=== PATIENT | male | born 1950 | race Caucasian/White ===

== ENCOUNTER 2022-04-01 07:22 | Inpatient (IN) | payer MEDICARE, MEDICAID ==
[~2022-04-01] VITALS: Ht 177.8 cm; Wt 59.9 kg
[2022-04-01] MEDS ORDERED: IOHEXOL 350 MG/ML 100 ML VIAL ONE (07:38)
[2022-04-01] MEDS ORDERED: SODIUM CHLORIDE 0.9% 100 ML ONE (07:38)
[2022-04-01] MEDS ORDERED: ONDANSETRON HCL 4 MG/2 ML VIAL IVP ONE (07:45)
[2022-04-01] MEDS ORDERED: SODIUM CHLORIDE 0.9% 1,000 ML IV ONE (07:45)
[2022-04-01 08:10] LABS: BASOPHILS % (AUTO) 2.1 % (0.0-2.0); EOSINOPHILS % (AUTO) 1.1 % (1.0-6.0); HEMATOCRIT 39.4 % (41-53); HEMOGLOBIN 12.8 g/dL (13.5-17.5); LYMPHOCYTES % (AUTO) 12.9 % (22.0-44.0); MEAN CORPUSCULAR HEMOGLOBIN 31.2 pg (26.0-34.0); MEAN CORPUSCULAR HGB CONC 32.5 G/dL (31.0-37.0); MEAN CORPUSCULAR VOLUME 96 fL (80-100); MONOCYTES # (AUTO) 0.6 K/uL (0.1-1.0); MONOCYTES % (AUTO) 7.1 % (2.0-9.0); NEUTROPHILS % (AUTO) 76.8 % (40.0-70.0); PLATELET COUNT (AUTO) 294 K/uL (150-450); RED BLOOD CELL COUNT(AUTO) 4.11 MIL/uL (4.50-5.90); RED CELL DISTRIBUTION WIDTH 16.1 % (11.5-14.5)
[2022-04-01 08:24] LABS: COVID AG,FIA SOURCE NASOPHARYNGEAL
[2022-04-01 08:25] LABS: D-DIMER 1.98 mg/L FEU (0.00-0.50); INR 1.2 (0.9-1.1)
[2022-04-01 08:29] LABS: ANION GAP 12 mmol/L (8-16); CALCIUM, TOTAL 9.1 mg/dL (8.8-10.5); CARBON DIOXIDE 19 mmol/L (22-29); CHLORIDE 107 mmol/L (98-107); CREATININE 1.14 mg/dL (0.60-1.30); GLOMERULAR FILTR. RATE CALC > 60 mL/min (>60); GLUCOSE,RANDOM 82 mg/dL (70-110); POTASSIUM 4.8 mmol/L (3.5-5.1); SODIUM SERUM 138 mmol/L (136-145); UREA NITROGEN, BLOOD 21 mg/dL (7-18)
[2022-04-01 08:32] LABS: ALANINE AMINOTRANSFERASE 43 U/L (12-78); ALKALINE PHOSPHATASE 102 U/L (46-116); ASPARTATE AMINOTRANSFERASE 32 U/L (15-37); B-TYPE NATRIURETIC PEPTIDE 1020 pg/mL (0-100); BILIRUBIN,TOTAL 1.1 mg/dL (0.1-1.0); CREATINE KINASE, TOTAL ONLY 69 U/L (39-308); LIPASE 54 U/L (73-393); PHOSPHORUS 3.8 mg/dL (2.5-4.9); TOTAL PROTEIN, SERUM 7.8 g/dL (6.4-8.2)
[2022-04-01] MEDS ORDERED: PANT-31 PO (08:46)
[2022-04-01] MEDS ORDERED: ATOR40TA28 PO (08:46)
[2022-04-01] MEDS ORDERED: APIX5TAB PO (08:46)
[2022-04-01] MEDS ORDERED: LOSA-381 PO (08:46)
[2022-04-01 08:56] LABS: INFLUENZA TYPE A NEGATIVE FOR TYPE A (NEGATIVE); INFLUENZA TYPE B NEGATIVE FOR TYPE B (NEGATIVE)
[2022-04-01] MEDS ORDERED: LEVOFLOXACIN 750 MG/D5% WATER 150 ML IV ONE (09:30)
[2022-04-01] MEDS ORDERED: DiphenhydrAMINE HCL 50 MG/ML VIAL IVP ONE (09:30)
[2022-04-01] MEDS ORDERED: METOCLOPRAMIDE HCL 5 MG/ML 2 ML VIAL IVP ONE (09:30)
[2022-04-01 12:16] LABS: APPEARANCE,URINE CLEAR (CLEAR); BILIRUBIN,URINE NEGATIVE (NEGATIVE); GLUCOSE, URINE (UA) NEGATIVE (NEGATIVE); KETONES,URINE NEGATIVE (NEGATIVE); LEUKOCYTE ESTERASE ,URINE NEGATIVE (NEGATIVE); NITRATE,URINE NEGATIVE (NEGATIVE); OCCULT BLOOD,URINE NEGATIVE (NEGATIVE); PH,URINE 5.5 (5.0-8.0); PROTEIN,URINE NEGATIVE (NEGATIVE); SPECIFIC GRAVITIY, URINE 1.027 (1.003-1.030); UROBILINOGEN,URINE <=1.0 mg/dL (<=1.0)
[2022-04-01 12:29] VITALS: BP 143/114
[2022-04-01] MEDS ORDERED: 0.9% SODIUM CHLORIDE 10 ML SYRINGE IVP PRN (12:30)
[2022-04-01] MEDS ORDERED: ONDANSETRON HCL 4 MG/2 ML VIAL IVP PRN (12:30)
[2022-04-01] MEDS ORDERED: ACETAMINOPHEN 325 MG TABLET PO PRN (12:30)
[2022-04-01 15:21] VITALS: BP 135/108
[2022-04-01 20:05] VITALS: BP 114/72
[2022-04-01] MEDS ORDERED: KETOROLAC TROMETHAMINE 10 MG TABLET PO ONE (21:15)
[2022-04-01] MEDS ORDERED: MELATONIN 3 MG TABLET PO PRN (21:15)
[2022-04-01] MEDS ORDERED: MAGNESIUM HYDROXIDE SUSPENSION 30 ML UDCUP PO PRN (22:30)
[2022-04-01] MEDS ORDERED: ZOLPIDEM TARTRATE 5 MG TABLET PO PRN (22:30)
[2022-04-01] MEDS ORDERED: ALBUTEROL SULFATE 2.5 MG/0.5 ML NEB SOLUTION NEB PRN (22:30)
[2022-04-01] MEDS ORDERED: BISACODYL 10 MG RECTAL RECTAL SUPPOSITORY PR PRN (22:30)
[2022-04-01] MEDS ORDERED: MORPHINE SULFATE 2 MG/ML SYRINGE IVP PRN (22:30)
[2022-04-01] MEDS ORDERED: IPRATROPIUM BROMIDE 0.5 MG/2.5 ML NEB SOLUTION NEB PRN (22:30)
[2022-04-01 23:49] VITALS: BP 136/81
[2022-04-02 04:09] VITALS: BP 123/72
[2022-04-02] MEDS: ACETAMINOPHEN 325 MG TABLET PO PRN ×2 (05:27→16:53)
[2022-04-02] MEDS: ONDANSETRON HCL 4 MG/2 ML VIAL IVP PRN (07:03)
[2022-04-02] MEDS: HEPARIN SODIUM,PORCINE 5,000 UNITS/ML VIAL SQ SCH ×4 (08:00→23:19)
[2022-04-02 08:05] VITALS: BP 140/89
[2022-04-02 08:20] LABS: BASOPHILS % (AUTO) 1.1 % (0.0-2.0); EOSINOPHILS % (AUTO) 0.8 % (1.0-6.0); HEMATOCRIT 37.4 % (41-53); HEMOGLOBIN 12.2 g/dL (13.5-17.5); LYMPHOCYTES % (AUTO) 11.5 % (22.0-44.0); MEAN CORPUSCULAR HEMOGLOBIN 31.2 pg (26.0-34.0); MEAN CORPUSCULAR HGB CONC 32.5 G/dL (31.0-37.0); MEAN CORPUSCULAR VOLUME 96 fL (80-100); MONOCYTES # (AUTO) 0.7 K/uL (0.1-1.0); MONOCYTES % (AUTO) 8.4 % (2.0-9.0); NEUTROPHILS # (AUTO) 6.6 K/uL (1.8-7.7); NEUTROPHILS % (AUTO) 78.2 % (40.0-70.0); PLATELET COUNT (AUTO) 258 K/uL (150-450)
[2022-04-02 08:37] LABS: ALBUMIN 3.5 g/dL (3.4-5.0); BILIRUBIN,TOTAL 1.6 mg/dL (0.1-1.0); CALCIUM, TOTAL 8.8 mg/dL (8.8-10.5); CREATININE 1.2 mg/dL (0.60-1.30); POTASSIUM 4.5 mmol/L (3.5-5.1); TOTAL PROTEIN, SERUM 7.1 g/dL (6.4-8.2)
[2022-04-02] MEDS: PANTOPRAZOLE SODIUM 40 MG DR TABLET PO SCH (08:54)
[2022-04-02] MEDS: LOSARTAN POTASSIUM 25 MG TABLET PO SCH (08:58)
[2022-04-02] MEDS: ATORVASTATIN CALCIUM 40 MG TABLET PO SCH (08:58)
[2022-04-02] MEDS ORDERED: PANTOPRAZOLE SODIUM 40 MG DR TABLET PO SCH (09:00)
[2022-04-02 15:38] LABS: SPECIMENTYPE,BODY FLUID PLEURAL
[2022-04-02 16:09] VITALS: BP 137/109
[2022-04-02 16:53] LABS: APPEARANCE,SPUN,BODY FLUID CLEAR (CLEAR); APPEARANCE,UNSPUN,BODY FLUID HAZY (CLEAR); COLOR,BODY FLUID YELLOW (LT YELLOW); TOTAL VOLUME,BODY FLUID 825 mL; WBC, BODY FLUID 4 /cu. mm.
[2022-04-02 16:54] LABS: BASOPHILS,BODY FLUID 0 %; EOSINOPHILS,BF (ANAL) 0 %; LYMPHOCYTES,BODY FLUID 65 %; MONOCYTES,BODY FLUID 9 %; NEUTROPHILS,BODY FLUID 26 %; PH, BODY FLUID 8
[2022-04-02] MEDS ORDERED: METOPROLOL SUCCINATE 50 MG ER TABLET PO ONE (17:30)
[2022-04-02 20:40] VITALS: BP 117/75
[2022-04-02] MEDS: HYDROCODONE/ACETAMINOPHEN 5-325 MG TABLET PO PRN (23:17)
[2022-04-03 00:20] VITALS: BP 122/80
[2022-04-03] MEDS: HYDROCODONE/ACETAMINOPHEN 5-325 MG TABLET PO PRN ×4 (04:34→18:36)
[2022-04-03 05:14] VITALS: BP 124/85
[2022-04-03] MEDS: HEPARIN SODIUM,PORCINE 5,000 UNITS/ML VIAL SQ SCH ×2 (08:00)
[2022-04-03 08:16] VITALS: BP 113/95
[2022-04-03] MEDS: ATORVASTATIN CALCIUM 40 MG TABLET PO SCH (08:57)
[2022-04-03] MEDS: PANTOPRAZOLE SODIUM 40 MG DR TABLET PO SCH (08:57)
[2022-04-03] MEDS: METOPROLOL SUCCINATE 50 MG ER TABLET PO SCH (08:57)
[2022-04-03] MEDS: APIXABAN 5 MG TABLET PO SCH ×2 (08:57→20:15)
[2022-04-03] MEDS: FUROSEMIDE 40 MG/4 ML VIAL IVP SCH (08:58)
[2022-04-03] MEDS: LOSARTAN POTASSIUM 25 MG TABLET PO SCH (09:00)
[2022-04-03 12:16] VITALS: BP 118/80
[2022-04-03] MEDS: ONDANSETRON HCL 4 MG/2 ML VIAL IVP PRN (14:16)
[2022-04-03 15:22] LABS: THYROID STIMULATING HORMONE 3.34 uIU/mL (0.36-3.74); TOTAL PROTEIN, SERUM 7.4 g/dL (6.4-8.2)
[2022-04-03 16:16] VITALS: BP 125/90
[2022-04-03 20:15] VITALS: BP 118/84
[2022-04-04] VITALS (7 sets, daily range): BP systolic 109–125; BP diastolic 64–86
[2022-04-04] MEDS: HYDROCODONE/ACETAMINOPHEN 5-325 MG TABLET PO PRN ×4 (01:29→23:14)
[2022-04-04] MEDS: LOSARTAN POTASSIUM 25 MG TABLET PO SCH (09:00)
[2022-04-04] MEDS: PANTOPRAZOLE SODIUM 40 MG DR TABLET PO SCH (09:00)
[2022-04-04] MEDS: ATORVASTATIN CALCIUM 40 MG TABLET PO SCH (09:00)
[2022-04-04] MEDS: APIXABAN 5 MG TABLET PO SCH ×2 (09:15→20:20)
[2022-04-04] MEDS: METOPROLOL SUCCINATE 50 MG ER TABLET PO SCH (09:15)
[2022-04-04] MEDS: FUROSEMIDE 40 MG/4 ML VIAL IVP SCH (09:16)
[2022-04-04] MEDS: ACETAMINOPHEN 325 MG TABLET PO PRN (11:43)
[2022-04-05 06:22] LABS: BASOPHILS % (AUTO) 1.9 % (0.0-2.0); EOSINOPHILS % (AUTO) 7.6 % (1.0-6.0); HEMATOCRIT 39.4 % (41-53); HEMOGLOBIN 12.8 g/dL (13.5-17.5); LYMPHOCYTES # (AUTO) 1.5 K/uL (1.0-4.8); LYMPHOCYTES % (AUTO) 17.6 % (22.0-44.0); MEAN CORPUSCULAR HEMOGLOBIN 31.1 pg (26.0-34.0); MEAN CORPUSCULAR HGB CONC 32.5 G/dL (31.0-37.0); MEAN CORPUSCULAR VOLUME 96 fL (80-100); MONOCYTES # (AUTO) 0.7 K/uL (0.1-1.0); MONOCYTES % (AUTO) 8.4 % (2.0-9.0); NEUTROPHILS # (AUTO) 5.4 K/uL (1.8-7.7); NEUTROPHILS % (AUTO) 64.5 % (40.0-70.0); PLATELET COUNT (AUTO) 232 K/uL (150-450); RED BLOOD CELL COUNT(AUTO) 4.12 MIL/uL (4.50-5.90); RED CELL DISTRIBUTION WIDTH 15.4 % (11.5-14.5)
[2022-04-05 06:47] LABS: CREATININE 1.29 mg/dL (0.60-1.30); POTASSIUM 4.4 mmol/L (3.5-5.1)
[2022-04-05 08:05] VITALS: BP 123/85
[2022-04-05] MEDS: ATORVASTATIN CALCIUM 40 MG TABLET PO SCH (08:18)
[2022-04-05] MEDS: FUROSEMIDE 40 MG/4 ML VIAL IVP SCH (08:18)
[2022-04-05] MEDS: PANTOPRAZOLE SODIUM 40 MG DR TABLET PO SCH (08:19)
[2022-04-05] MEDS: LOSARTAN POTASSIUM 25 MG TABLET PO SCH (08:19)
[2022-04-05] MEDS: APIXABAN 5 MG TABLET PO SCH (08:19)
[2022-04-05] MEDS: METOPROLOL SUCCINATE 50 MG ER TABLET PO SCH (08:19)
[2022-04-05] MEDS: HYDROCODONE/ACETAMINOPHEN 5-325 MG TABLET PO PRN ×2 (08:19→15:01)
[2022-04-05 12:10] VITALS: BP 119/79
[2022-04-05] MEDS ORDERED: METO-558 PO (12:16)
[2022-04-05] MEDS ORDERED: SPIR-37 PO (12:16)
[2022-04-06] MEDS ORDERED: SPIRONOLACTONE 25 MG TABLET PO SCH (09:00)
== END 2022-04-05 16:55 | disposition home health service (06) | DRG 291 ==
LOC: EMS 07:22 → 5S 11:20
PROVIDERS: ADMIT Hospitalist; ATTEND Hospitalist
PROC: 0W993ZZ Drainage of Right Pleural Cavity, Percutaneous Approach (ICD-10-PCS; principal; 2022-04-02)
DX: I11.0 Hypertensive heart disease with heart failure (principal); E43 Unspecified severe protein-calorie malnutrition; J18.9 Pneumonia, unspecified organism; J96.01 Acute respiratory failure with hypoxia; I50.23 Acute on chronic systolic (congestive) heart failure; I48.20 Chronic atrial fibrillation, unspecified; R64 Cachexia; J91.8 Pleural effusion in other conditions classified elsewhere; Z68.1 Body mass index [BMI] 19.9 or less, adult; F17.210 Nicotine dependence, cigarettes, uncomplicated; E78.5 Hyperlipidemia, unspecified; Z20.822 Contact with and (suspected) exposure to COVID-19; E78.00 Pure hypercholesterolemia, unspecified; I34.0 Nonrheumatic mitral (valve) insufficiency; Z79.01 Long term (current) use of anticoagulants; Z86.73 Personal history of transient ischemic attack (TIA), and cerebral infarction without residual deficits; Z86.74 Personal history of sudden cardiac arrest; Z79.899 Other long term (current) drug therapy; Z88.0 Allergy status to penicillin
CPT/HCPCS: 32555; 71045; 71275; 76942; 80048; 80053; 81003; 82465; 82550; 82945; 83615; 83690; 83735; 83880; 83986; 84100; 84155; 84157; 84443; 84484; 85025; 85379; 85610; 85730; 87015; 87075; 87081; 87101; 87205; 87206; 87804; 89051; 93005; 93306; 99285; J1200; J1644; J1940; J1956; J2270; J2405; J2765; J7030; J7050; Q9967; 36415-L1; 36415-TC; 87070

== ENCOUNTER 2022-05-17 16:28 | Emergency (ER) | payer MEDICARE, MEDICAID ==
[~2022-05-17] VITALS: Ht 177.8 cm; Wt 59.9 kg
[~2022-05-17 16:28] MED LIST: APIX5TAB PO; ATOR40TA28 PO; LOSA-381 PO; METO-558 PO; PANT-31 PO; SPIR-37 PO
[2022-05-17 17:22] LABS: APPEARANCE,URINE HAZY (CLEAR); BILIRUBIN,URINE NEGATIVE (NEGATIVE); GLUCOSE, URINE (UA) NEGATIVE (NEGATIVE); LEUKOCYTE ESTERASE ,URINE NEGATIVE (NEGATIVE); NITRATE,URINE NEGATIVE (NEGATIVE); OCCULT BLOOD,URINE LARGE (NEGATIVE); PH,URINE 5.5 (5.0-8.0); PROTEIN,URINE 100-200,SEE CONFIRM mg/dL (NEGATIVE); SPECIFIC GRAVITIY, URINE 1.014 (1.003-1.030)
[2022-05-17 17:26] LABS: AMPHET/METH SCREEN,URINE NEGATIVE (NEGATIVE); BARBITURATE SCREEN, URINE NEGATIVE (NEGATIVE); BENZODIAZEPINES SCREEN,URINE NEGATIVE (NEGATIVE); CANNABINOID SCREEN,URINE NEGATIVE (NEGATIVE); COCAINE SCREEN,URINE NEGATIVE (NEGATIVE); METHADONE SCREEN, URINE NEGATIVE (NEGATIVE); OPIATE SCREEN,URINE NEGATIVE (NEGATIVE); PHENCYCLIDINE SCREEN,URINE NEGATIVE (NEGATIVE)
[2022-05-17 17:35] LABS: COVID AG,FIA SOURCE NASOPHARYNGEAL
[2022-05-17 17:36] LABS: BASOPHILS % (AUTO) 0.5 % (0.0-2.0); EOSINOPHILS % (AUTO) 0 % (1.0-6.0); HEMATOCRIT 34.7 % (41-53); HEMOGLOBIN 10.7 g/dL (13.5-17.5); LYMPHOCYTES # (AUTO) 0.5 K/uL (1.0-4.8); MEAN CORPUSCULAR HEMOGLOBIN 32.9 pg (26.0-34.0); MEAN CORPUSCULAR HGB CONC 30.7 G/dL (31.0-37.0); MEAN CORPUSCULAR VOLUME 107 fL (80-100); MONOCYTES # (AUTO) 0.4 K/uL (0.1-1.0); MONOCYTES % (AUTO) 6.4 % (2.0-9.0); NEUTROPHILS # (AUTO) 5.9 K/uL (1.8-7.7); RED BLOOD CELL COUNT(AUTO) 3.24 MIL/uL (4.50-5.90); RED CELL DISTRIBUTION WIDTH 22.2 % (11.5-14.5)
[2022-05-17 17:47] LABS: BACTERIA,URINE Moderate /HPF (None Seen); SQUAMOUS EPITHELIAL CELL,UR Few /LPF (None Seen); WBC,URINE 0-2 /HPF (0-5)
[2022-05-17 17:48] LABS: SULFOSALICYLIC ACID,URINE 2+ (Negative)
[2022-05-17 17:49] LABS: INR 2.9 (0.9-1.1); PROTHROMBIN TIME 29.3 SEC (9.4-11.6)
[2022-05-17 17:53] LABS: INFLUENZA TYPE A NEGATIVE FOR TYPE A (NEGATIVE); INFLUENZA TYPE B NEGATIVE FOR TYPE B (NEGATIVE)
[2022-05-17 17:59] LABS: SALICYLATE < 0.2 mg/dL (2.8-20.0)
[2022-05-17 18:03] LABS: ALANINE AMINOTRANSFERASE 910 U/L (12-78); ALBUMIN 3.4 g/dL (3.4-5.0); ALKALINE PHOSPHATASE 207 U/L (46-116); ANION GAP 33 mmol/L (8-16); BILIRUBIN,TOTAL 4.4 mg/dL (0.1-1.0); CALCIUM, TOTAL 8.8 mg/dL (8.8-10.5); CHLORIDE 88 mmol/L (98-107); CREATININE 2.46 mg/dL (0.60-1.30); FREE T4 (FREE THYROXINE) 0.99 ng/dL (0.76-1.46); GLUCOSE,RANDOM 134 mg/dL (70-110); LIPASE 419 U/L (73-393); POTASSIUM 5.5 mmol/L (3.5-5.1); SODIUM SERUM 128 mmol/L (136-145); THYROID STIMULATING HORMONE 4.21 uIU/mL (0.36-3.74); TOTAL PROTEIN, SERUM 6.6 g/dL (6.4-8.2); UREA NITROGEN, BLOOD 21 mg/dL (7-18)
[2022-05-17 18:05] LABS: NEUTROPHILS % (AUTO) 86.1 % (40.0-70.0)
[2022-05-17 18:07] LABS: PLATELET COUNT (AUTO) 49 K/uL (150-450)
[2022-05-17 18:08] LABS: PATHOLOGY REVIEW, DIFF YES; PLATELET MORPHOLOGY COMMENT GIANT PLTS PRESENT
[2022-05-17 18:12] LABS: LACTIC ACID 21.7 mmol/L (0.4-2.0)
[2022-05-17 18:13] LABS: ACETAMINOPHEN < 2 mcg/mL (10-30); CARBON DIOXIDE 7 mmol/L (22-29); GLOMERULAR FILTR. RATE CALC 26 mL/min (>60)
[2022-05-17] MEDS ORDERED: LEVOFLOXACIN 750 MG/D5% WATER 150 ML IV ONE (18:15)
[2022-05-17 18:28] LABS: PHOSPHORUS 10.4 mg/dL (2.5-4.9)
[2022-05-17] MEDS ORDERED: SODIUM CHLORIDE 0.9% 1,800 ML IV ONE (18:30)
[2022-05-17] MEDS ORDERED: LORazepam 2 MG/ML VIAL IVP ONE (18:30)
[2022-05-17] MEDS ORDERED: MAGNESIUM SULFATE 2 GM, MVI, ADULT NO.1 WITH VIT K 10 ML, THIAMINE 100 MG, FOLIC ACID 1... IV ONE ×5 (18:30)
[2022-05-17 18:44] LABS: ASPARTATE AMINOTRANSFERASE 6457 U/L (15-37)
[2022-05-17] MEDS ORDERED: VANCOMYCIN 1GM/WATER(PEG/NADA) 200 ML IV ONE (18:45)
[2022-05-17 18:55] LABS: CREATINE KINASE, TOTAL ONLY 3114 U/L (39-308)
[2022-05-17 18:58] LABS: ABG BASE EXCESS -27.7 mmol/L (-2.0-3.0); ABG CARBOXYHEMOGLOBIN 0.2 % (0.0-1.5); ABG METHEMOGLOBIN 2.3 % (0.0-1.5); ABG OXYGEN CONTENT 2.5 mL/dL (15.0-23.0); ABG PCO2 26 mmHg (35-45); ABG TOTAL HEMOGLOBIN 10.4 G/dL (12.0-18.0); SOURCE, BLOOD GAS ARTERIAL; TEMPERATURE, FAHRENHEIT, BG 86.3 FAHREN (96.0-98.6)
[2022-05-17 19:00] LABS: ABG HCO3 4.7 mmol/L (22.0-26.0); ABG OXYGEN SATURATION 17.4 % (95.0-98.0); ABG PH 6.927 (7.35-7.450); PO2, ARTERIAL BG 13.1 mmHg (75.0-83.0); SITE, BLOOD GAS RT BRACHIAL
[2022-05-17] MEDS ORDERED: 0.9% SODIUM CHLORIDE 10 ML SYRINGE IVP PRN (19:00)
[2022-05-17] MEDS ORDERED: ACETAMINOPHEN 325 MG TABLET PO PRN (19:00)
[2022-05-17] MEDS ORDERED: *CLINICAL-CEFEPIME DOSING CLINICAL ONE (19:00)
[2022-05-17] MEDS ORDERED: CEFEPIME HCL 1 GM in DEXTROSE 5%-WATER 50 ML IV ONE (19:00)
[2022-05-17] MEDS ORDERED: ONDANSETRON HCL 4 MG/2 ML VIAL IVP PRN (19:00)
[2022-05-17 19:01] LABS: O2 DEVICE,BLOOD GAS NC (ROOM AIR)
[2022-05-17 19:10] VITALS: BP 85/71
[2022-05-17] MEDS ORDERED: SODIUM BICARBONATE [ADULT] 8.4% 50 MEQ/50 ML SYRINGE IVP ONE (19:30)
[2022-05-17] MEDS ORDERED: NOREPINEPHRINE 8 MG/D5%-WATER 250 ML IV PRN (20:15)
[2022-05-17 20:53] LABS: % IRON SATURATION 105.4 % (30-44); IRON, SERUM 231 mcg/dL (50-175); TOTAL IRON BINDING CAPACITY 219 mcg/dL (250-450)
[2022-05-17 21:28] LABS: FERRITIN 5237 ng/mL (26-388)
== END 2022-05-17 23:49 ==
LOC: EDUNIT# 16:28 → EMS 16:31
DX: T68.XXXA Hypothermia, initial encounter (principal); Z20.822 Contact with and (suspected) exposure to COVID-19; R65.20 Severe sepsis without septic shock; E03.9 Hypothyroidism, unspecified; E78.00 Pure hypercholesterolemia, unspecified; E87.21 Acute metabolic acidosis; F17.210 Nicotine dependence, cigarettes, uncomplicated; I10 Essential (primary) hypertension; I48.91 Unspecified atrial fibrillation; K72.00 Acute and subacute hepatic failure without coma; N17.9 Acute kidney failure, unspecified; M10.9 Gout, unspecified; X58.XXXA Exposure to other specified factors, initial encounter; Z86.73 Personal history of transient ischemic attack (TIA), and cerebral infarction without residual deficits; Z88.0 Allergy status to penicillin; Z91.199 Patient's noncompliance with other medical treatment and regimen due to unspecified reason
CPT/HCPCS: 99291; 96365; 70450; 71045; 96367; 96375; 87426; 80053; 82140; 82248; 82550; 82728; 82962; 83540; 83550; 83605; 83690; 83735; 84100; 84439; 84443; 85025; 85610; 85730; 87040; 87804; 87086; 82805; 93005; 96368; 80307; 81002; 81001; 82247; 36415; G0480; J0692; J2060; J3490 ×2; J3411; Q9967; J7060; J3475; J7030; G0481